=== PATIENT | male | born 1985 | race African-American/Black ===

== ENCOUNTER 2016-07-19 14:41 | Inpatient (IN) | payer OTHER ==
[~2016-07-19] VITALS: Ht 182.9 cm; Wt 97.5 kg
[~2016-07-19 14:41] MED LIST changes: -DIATRIZOATE MEGLUM/DIATRIZOATE SOD 120 ML BTL (for RAD DIAG) RECTAL ONE; -DIVA500T PO; -FLUO20CA4 PO; -MIRTA15 PO; -OLAN10TA PO; -RANI150T PO; -fentaNYL CITRATE 250 MCG/5 ML AMP ONE
[2016-07-20] MEDS ORDERED: LACTATED RINGER'S 1000 ML IV SCH (06:45)
[2016-07-20] MEDS ORDERED: METOPROLOL TARTRATE 25 MG TAB PO PRN (06:45)
[2016-07-20] MEDS ORDERED: SODIUM CHLORID 0.9% 500 ML IV SCH (06:45)
[2016-07-20] MEDS ORDERED: ceFAZolin 2 GM PREMIX 50 ML IV SCH (06:45)
[2016-07-20] MEDS ORDERED: ALVIMOPAN 12 MG CAPSULE - On Call PO SCH (06:45)
[2016-07-20] MEDS ORDERED: METRONIDAZOLE 500 MG/100 ML ISONTONIC SOLN IV SCH (06:45)
[2016-07-20] MEDS ORDERED: INSULIN HUMAN REGULAR 1,000 UNITS/10 ML VIAL SQ PRN (06:45)
[2016-07-20] MEDS ORDERED: DIVA500T PO (06:50)
[2016-07-20] MEDS ORDERED: RANI150T PO (06:50)
[2016-07-20] MEDS ORDERED: MIRTA15 PO (06:50)
[2016-07-20] MEDS ORDERED: FLUO20CA4 PO (06:50)
[2016-07-20] MEDS ORDERED: OLAN10TA PO (06:50)
[2016-07-20 06:51] VITALS: BP 121/69; PULSE 62; RESP 16; TEMP 97.6; O2SAT 99
[2016-07-20] MEDS ORDERED: BUPIVACAINE/EPINEPHRINE 0.25% 50 ML VIAL ONE (07:04)
[2016-07-20] MEDS ORDERED: ACETAMINOPHEN 1000 MG/100 ML VIAL IV ONE (07:06)
[2016-07-20 07:46] LABS: AUTOMATED NEUTROPHIL # 2.1 TH/MM3 (1.8-7.7); BASOPHIL % 0.2 % (0.0-2.0); EOSINOPHIL # 0.1 TH/MM3 (0-0.4); EOSINOPHIL % 1.1 % (0.0-4.0); HEMATOCRIT 43.6 % (39.0-51.0); HEMO FLAGS DIFF FINAL; LYMPH % 41.3 % (9.0-44.0); LYMPHOCYTE # 1.9 TH/MM3 (1.0-4.8); MEAN CELL VOLUME 93.1 FL (80.0-100.0); MEAN CORPUSCULAR HEMOGLOBIN 31.5 PG (27.0-34.0); MEAN CORPUSCULAR HGB CONC 33.9 % (32.0-36.0); MONO % 11.8 % (0.0-8.0); NEUT % 45.6 % (16.0-70.0); PLATELET COUNT 159 TH/MM3 (150-450); RED BLOOD COUNT 4.68 MIL/MM3 (4.50-5.90); WHITE BLOOD COUNT 4.6 TH/MM3 (4.0-11.0)
[2016-07-20] MEDS ORDERED: FAMOTIDINE 20 MG/2 ML VIAL ONE (07:51)
[2016-07-20] MEDS ORDERED: MIDAZOLAM HCL 2 MG/2 ML VIAL ONE (07:51)
[2016-07-20 08:15] LABS: ANION GAP 7 MEQ/L (5-15); AST (GOT) 24 U/L (15-37); BICARBONATE 29.3 MEQ/L (21.0-32.0); BLOOD UREA NITROGEN 11 MG/DL (7-18); CHLORIDE 102 MEQ/L (98-107); GLOMERULAR FILTRATION RATE 97 ML/MIN (>89); POTASSIUM 3.9 MEQ/L (3.5-5.1); SODIUM (NA) 138 MEQ/L (136-145)
[2016-07-20 08:18] LABS: ALKALINE PHOSPHATASE 54 U/L (45-117); ALT (GPT) 20 U/L (12-78); TOTAL BILIRUBIN ADULT 0.8 MG/DL (0.2-1.0)
[2016-07-20] MEDS ORDERED: ceFAZolin INJ 1,000 MG VIAL IV ONE (11:20)
[2016-07-20] MEDS ORDERED: NEOSTIGMINE 3 MG/3 ML SYR IV ONE (12:00)
[2016-07-20] MEDS ORDERED: PROPOFOL 200 MG/20 ML AMP IV ONE (12:00)
[2016-07-20] MEDS ORDERED: LACTATED RINGER'S 1000 ML INJ 5,000 ML IV ONE (12:00)
[2016-07-20] MEDS ORDERED: ONDANSETRON HCL 4 MG/2 ML VIAL IV PUSH ONE (12:00)
[2016-07-20 15:43] LABS: HEMATOCRIT 39.7 % (39.0-51.0); REVIEW FLAG FINAL
[2016-07-20] MEDS: LACTATED RINGER'S 1000 ML INJ 1,000 ML IV SCH ×2 (16:38→20:38)
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
[2016-07-20] MEDS ORDERED: MORPHINE SULFATE 4 MG/ML INJ IV PRN (16:45)
[2016-07-20] MEDS ORDERED: SODIUM CHLORIDE 0.9% FLUSH 5 ML FLUSH IVF PRN (16:45)
[2016-07-20] MEDS ORDERED: ONDANSETRON HCL 4 MG/2 ML VIAL IV PRN (16:45)
[2016-07-20] MEDS ORDERED: oxyCODONE/ACETAMINOPHEN 5 MG/325 MG TAB PO PRN (16:45)
[2016-07-20] MEDS ORDERED: DO NOT ADM ANY ANTICOAGULANT DRUGS XX PRN (16:45)
[2016-07-20] MEDS ORDERED: Post-op Orders (for Pharmacy) MISC XX ONE (16:45)
[2016-07-20] MEDS ORDERED: NALOXONE HCL 0.4 MG/ML AMP IV PRN ×2 (16:45)
[2016-07-20] MEDS ORDERED: HYDROmorphone HCL PCA 6 MG/30 ML IV SCH (16:45)
[2016-07-20] MEDS ORDERED: fentaNYL CITRATE 250 MCG/5 ML AMP ONE (16:59)
[2016-07-20] MEDS ORDERED: *MEPERIDINE 25 MG INJ VIAL PERIprocedural Use ONLY ONE (16:59)
[2016-07-20] MEDS ORDERED: *ONDANSETRON 4 MG VIAL PERIprocedural Use ONLY ONE (17:34)
[2016-07-20] MEDS: ACETAMINOPHEN 1000 MG/100 ML VIAL IV SCH ×2 (17:45→23:50)
[2016-07-20] MEDS: PANTOPRAZOLE SODIUM 40 MG VIAL IV SCH (17:46)
[2016-07-20] MEDS: metroNIDAZOLE 500 MG INJ 100 ML IV SCH (20:00)
[2016-07-20] MEDS: diphenhydrAMINE HCL 50 MG/ML VIAL IV PRN (20:00)
[2016-07-20] MEDS ORDERED: SUGAMMADEX SODIUM 200 MG/2 ML VIAL IV PUSH ONE ×2 (20:33)
[2016-07-20] MEDS: SODIUM CHLORIDE 0.9% FLUSH 5 ML FLUSH IVF SCH (20:55)
[2016-07-20] MEDS: LORazepam 2 MG/ML VIAL IVP PRN (20:56)
[2016-07-20] MEDS: PCA - TOTAL MG DILAUDID DELIVERED PER SHIFT OTHER SCH (22:00)
[2016-07-20] MEDS ORDERED: LACTATED RINGER'S 1000 ML INJ 1,000 ML IV SCH (23:15)
[2016-07-21] VITALS (20 sets, daily range): BP systolic 121–133; BP diastolic 62–88; PULSE 94–141; RESP 18–22; TEMP 98.3–100.3; O2SAT 92–98
[2016-07-21] MEDS ORDERED: LACTATED RINGER'S 1000 ML INJ 1,000 ML IV SCH (04:15)
[2016-07-21] MEDS: metroNIDAZOLE 500 MG INJ 100 ML IV SCH ×2 (05:22→11:22)
[2016-07-21] MEDS: PCA - TOTAL MG DILAUDID DELIVERED PER SHIFT OTHER SCH (05:39)
[2016-07-21] MEDS: ACETAMINOPHEN 1000 MG/100 ML VIAL IV SCH ×2 (06:00→11:23)
[2016-07-21] MEDS: diphenhydrAMINE HCL 50 MG/ML VIAL IV PRN ×3 (06:30→21:34)
[2016-07-21] MEDS: ALVIMOPAN 12 MG CAPSULE - Post-op dosing PO SCH ×2 (09:10→20:17)
[2016-07-21] MEDS: SODIUM CHLORIDE 0.9% FLUSH 5 ML FLUSH IVF SCH ×3 (09:11→21:00)
[2016-07-21] MEDS ORDERED: NALOXONE HCL 0.4 MG/ML AMP IV PRN ×2 (09:15)
[2016-07-21] MEDS ORDERED: Post-op Orders (for Pharmacy) MISC XX ONE (09:15)
[2016-07-21] MEDS ORDERED: SODIUM CHLORIDE 0.9% FLUSH 5 ML FLUSH IVF PRN (09:15)
--- NOTE | 2016-07-21 09:21 | HHI.PR ---
Subjective Subjective Notes c/o LUE weakness. Can't neon tube bender towards face. Itchy. Objective Vitals/I&O Vital Signs Date Time Temp Pulse Resp B/P Pulse Ox O2 Delivery O2 Flow Rate FiO2 07/21/16 05:39 18 07/21/16 04:00 110 125/77 97 07/21/16 02:00 98.3 07/20/16 20:15 Nasal Cannula 2 Labs Laboratory Tests Test 07/20/16 15:08 Hemoglobin 14.0 Hematocrit 39.7 Cardiovascular: Other (sinus tachycardia.) Lungs: Clear Abdomen: Other (ileostomy edematous, pink/beefy red, no output. 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 LUE weakness, neuropraxia, will get PT to see, begin exercises. Will get neuro eval if improvement not significant. Clears. Labs drawn, results pending, will follow up. Follow sinus tachycardia, may need additional fluid, will give 500 bolus today, though UOP good. Kevin Julien MD Jul 21, 2016 09:21
[2016-07-21] MEDS ORDERED: SODIUM CHLORID 0.9% 500 ML INJ 500 ML IV ONE (09:30)
[2016-07-21] MEDS: MORPHINE SULFATE 30 MG/30 ML PCA IV SCH ×2 (11:29→20:14)
[2016-07-21 11:34] LABS: AUTOMATED NEUTROPHIL # 5.7 TH/MM3 (1.8-7.7); BASOPHIL % 0.1 % (0.0-2.0); HEMATOCRIT 37.7 % (39.0-51.0); HEMO FLAGS DIFF FINAL; LYMPH % 14.5 % (9.0-44.0); LYMPHOCYTE # 1.1 TH/MM3 (1.0-4.8); MEAN CELL VOLUME 93.2 FL (80.0-100.0); MEAN CORPUSCULAR HEMOGLOBIN 32.1 PG (27.0-34.0); MEAN CORPUSCULAR HGB CONC 34.4 % (32.0-36.0); MONO % 10.4 % (0.0-8.0); PLATELET COUNT 172 TH/MM3 (150-450); RED BLOOD COUNT 4.05 MIL/MM3 (4.50-5.90); WHITE BLOOD COUNT 7.5 TH/MM3 (4.0-11.0)
[2016-07-21 12:26] LABS: BICARBONATE 29.6 MEQ/L (21.0-32.0); POTASSIUM 3.7 MEQ/L (3.5-5.1)
[2016-07-21] MEDS: PCA - TOTAL MG MORPHINE DELIVERED PER SHIFT SCH ×2 (14:00→22:00)
[2016-07-21] MEDS: ENOXAPARIN SODIUM 40 MG/0.4 ML SYRINGE SQ SCH (16:16)
[2016-07-21] MEDS: LACTATED RINGER'S 1000 ML INJ 1,000 ML IV SCH (17:47)
[2016-07-21] MEDS: PANTOPRAZOLE SODIUM 40 MG VIAL IV SCH (17:47)
[2016-07-22] VITALS (21 sets, daily range): BP systolic 112–120; BP diastolic 55–69; PULSE 108–137; RESP 18; TEMP 98–99.4; O2SAT 92–99
[2016-07-22] MEDS: LACTATED RINGER'S 1000 ML INJ 1,000 ML IV SCH ×2 (02:43→09:44)
[2016-07-22] MEDS: MORPHINE SULFATE 30 MG/30 ML PCA IV SCH ×2 (03:48→20:31)
[2016-07-22] MEDS: diphenhydrAMINE HCL 50 MG/ML VIAL IV PRN (03:48)
[2016-07-22] MEDS: LORazepam 2 MG/ML VIAL IVP PRN (03:58)
[2016-07-22] MEDS: PCA - TOTAL MG MORPHINE DELIVERED PER SHIFT SCH ×3 (05:56→22:00)
[2016-07-22] MEDS: SODIUM CHLORIDE 0.9% FLUSH 5 ML FLUSH IVF SCH ×4 (09:00→20:15)
[2016-07-22] MEDS: ALVIMOPAN 12 MG CAPSULE - Post-op dosing PO SCH ×2 (09:43→20:15)
--- NOTE | 2016-07-22 12:39 | HHI.PR ---
Subjective Subjective Notes feels ok. pain controlled, tolerating liquids, LUE moving more today Objective Vitals/I&O Vital Signs Date Time Temp Pulse Resp B/P Pulse Ox O2 Delivery O2 Flow Rate FiO2 07/22/16 11:00 98.0 129 18 120/62 92 07/22/16 07:47 Nasal Cannula 2.00 Cardiovascular: Regular Lungs: Clear Abdomen: Non-distended, Post-op tenderness, BS normal Narrative Exam ileostomy edematous RLQ, midline wound is clean good ROM LUE A/P Assessment and Plan s/p colostomy takedown stable remains tachycardic but labs ok and AAMIR with serosanguinous fluid FU labs in am LUE improving, likely palsy from positioning Alan Jack MD Jul 22, 2016 12:39
[2016-07-22] MEDS: ENOXAPARIN SODIUM 40 MG/0.4 ML SYRINGE SQ SCH (15:18)
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
[2016-07-22] MEDS: PANTOPRAZOLE SODIUM 40 MG VIAL IV SCH (17:57)
[2016-07-23] VITALS (21 sets, daily range): BP systolic 104–115; BP diastolic 53–67; PULSE 99–118; RESP 18–20; TEMP 98.6–100.8; O2SAT 93–99
[2016-07-23] MEDS: LACTATED RINGER'S 1000 ML INJ 1,000 ML IV SCH (02:43)
[2016-07-23] MEDS: PCA - TOTAL MG MORPHINE DELIVERED PER SHIFT SCH ×3 (05:23→22:00)
--- NOTE | 2016-07-23 06:50 | HHI.PR ---
Subjective Subjective Notes c/o pain. pain med effective. Tolerating liquids. Objective Vitals/I&O Vital Signs Date Time Temp Pulse Resp B/P Pulse Ox O2 Delivery O2 Flow Rate FiO2 07/23/16 05:23 18 07/23/16 04:00 98.6 99 115/67 97 07/22/16 20:01 Nasal Cannula 3.50 Cardiovascular: Regular Lungs: Clear Abdomen: Non-distended, Other (ileostomy functioning well. pink. Drain serosanguinous.), Post-op tenderness Extremities: No edema, Perfused A/P Assessment and Plan POD 3 lap converted to open colostomy takedown, diverting ileostomy. Advance diet to regular. getting OOB. Encouraged patient to use po pain meds. LUE moving well, neuropraxia drastically improved. Kevin Julien MD Jul 23, 2016 06:50
[2016-07-23 07:12] LABS: BASOPHIL % 0.1 % (0.0-2.0); EOSINOPHIL % 0.3 % (0.0-4.0); HEMATOCRIT 29.5 % (39.0-51.0); HEMO FLAGS DIFF FINAL; LYMPH % 15.2 % (9.0-44.0); MEAN CELL VOLUME 93.3 FL (80.0-100.0); MEAN CORPUSCULAR HEMOGLOBIN 32.5 PG (27.0-34.0); MEAN CORPUSCULAR HGB CONC 34.8 % (32.0-36.0); MONO % 9.2 % (0.0-8.0); NEUT % 75.2 % (16.0-70.0); PLATELET COUNT 149 TH/MM3 (150-450); RED BLOOD COUNT 3.16 MIL/MM3 (4.50-5.90); RED CELL DISTRIBUTION WIDTH 14.1 % (11.6-17.2); WHITE BLOOD COUNT 6.6 TH/MM3 (4.0-11.0)
[2016-07-23 07:52] LABS: POTASSIUM 3.3 MEQ/L (3.5-5.1)
[2016-07-23] MEDS: SODIUM CHLORIDE 0.9% FLUSH 5 ML FLUSH IVF SCH ×4 (09:00→20:55)
[2016-07-23] MEDS: ALVIMOPAN 12 MG CAPSULE - Post-op dosing PO SCH ×2 (10:40→20:55)
[2016-07-23] MEDS: oxyCODONE/ACETAMINOPHEN 10 MG/325 MG TAB PO PRN (12:03)
--- NOTE | 2016-07-23 17:09 | EKG ---
Date Performed: 07/22/2016 Time Performed: 14:27:00 PTAGE: 30 years EKG: Sinus tachycardia Compared to prior tracing no significant change Normal ECG except for rat e PREVIOUS TRACING : 03/13/2009 00.48 DOCTOR: Amna Scruggs Interpretating Date/Time 07/23/2016 17:07:33
[2016-07-23] MEDS: PANTOPRAZOLE SODIUM 40 MG VIAL IV SCH (17:23)
[2016-07-23] MEDS: MORPHINE SULFATE 30 MG/30 ML PCA IV SCH (18:42)
[2016-07-23] MEDS: POTASSIUM CHLORIDE 20 MEQ CONTROLLED RELEASE TAB PO SCH (20:55)
[2016-07-24] VITALS (21 sets, daily range): BP systolic 104–138; BP diastolic 58–75; PULSE 95–121; RESP 18; TEMP 98.6–100.8; O2SAT 91–96
[2016-07-24] MEDS: PCA - TOTAL MG MORPHINE DELIVERED PER SHIFT SCH ×3 (05:33→22:00)
[2016-07-24 06:59] LABS: HEMATOCRIT 30.5 % (39.0-51.0); MEAN CELL VOLUME 92.3 FL (80.0-100.0); MEAN CORPUSCULAR HEMOGLOBIN 32.2 PG (27.0-34.0); MEAN CORPUSCULAR HGB CONC 34.8 % (32.0-36.0); PLATELET COUNT 199 TH/MM3 (150-450); RED BLOOD COUNT 3.31 MIL/MM3 (4.50-5.90); RED CELL DISTRIBUTION WIDTH 13.6 % (11.6-17.2); REVIEW FLAG FINAL
[2016-07-24 07:21] LABS: BICARBONATE 29.1 MEQ/L (21.0-32.0); POTASSIUM 3.3 MEQ/L (3.5-5.1)
[2016-07-24] MEDS: ALVIMOPAN 12 MG CAPSULE - Post-op dosing PO SCH ×2 (08:40→21:46)
[2016-07-24] MEDS: POTASSIUM CHLORIDE 20 MEQ CONTROLLED RELEASE TAB PO SCH ×2 (08:41→21:47)
--- NOTE | 2016-07-24 08:55 | HHI.PR ---
Subjective Subjective Notes getting up to chair. Pain better. Objective Vitals/I&O Vital Signs Date Time Temp Pulse Resp B/P Pulse Ox O2 Delivery O2 Flow Rate FiO2 07/24/16 07:00 100.2 101 18 115/69 94 07/23/16 09:35 Nasal Cannula 3.00 Labs Laboratory Tests Test 07/24/16 06:15 White Blood Count 7.0 Red Blood Count 3.31 Hemoglobin 10.6 Hematocrit 30.5 Mean Corpuscular Volume 92.3 Mean Corpuscular Hemoglobin 32.2 Mean Corpuscular Hemoglobin 34.8 Concent Red Cell Distribution Width 13.6 Platelet Count 199 Mean Platelet Volume 7.3 Sodium Level 140 Potassium Level 3.3 Chloride Level 104 Carbon Dioxide Level 29.1 Anion Gap 7 Blood Urea Nitrogen 6 Creatinine 0.81 Estimat Glomerular Filtration 134 Rate Random Glucose 106 Calcium Level 8.2 Cardiovascular: Regular Lungs: Clear Abdomen: Non-distended, Other (ileostomy with edema, but functioning well. Midline scar approximated without drainage. Drain serous, pink tinged), Post-op tenderness A/P Assessment and Plan POD 4 lap converted to open colostomy takedown, diverting ileostomy. Tolerating diet. REDD kate. Supplement potassium. Transfer to med surg floor. Kevin Julien MD Jul 24, 2016 08:55
[2016-07-24] MEDS: SODIUM CHLORIDE 0.9% FLUSH 5 ML FLUSH IVF SCH ×4 (09:00→21:52)
[2016-07-24] MEDS ORDERED: RESP: ALBUTEROL 2.5 MG/3 ML NEB (SCH) INH (10:00)
[2016-07-24] MEDS: POTASSIUM CHLORIDE INJ 30 MEQ in LACTATED RINGER'S 1000 ML INJ 1,000 ML IV SCH (11:11)
[2016-07-24] MEDS: POTASSIUM CHLOR 20 MEQ PREMIX 100 ML IV SCH ×2 (11:11→14:35)
[2016-07-24] MEDS: MORPHINE SULFATE 30 MG/30 ML PCA IV SCH (20:03)
[2016-07-24] MEDS: PANTOPRAZOLE SODIUM 40 MG VIAL IV SCH (21:46)
[2016-07-25] VITALS (20 sets, daily range): BP systolic 106–130; BP diastolic 62–71; PULSE 88–114; RESP 16–20; TEMP 98.8–100.4; O2SAT 96–98
[2016-07-25] MEDS: POTASSIUM CHLORIDE INJ 30 MEQ in LACTATED RINGER'S 1000 ML INJ 1,000 ML IV SCH ×2 (00:13→12:27)
[2016-07-25] MEDS: PCA - TOTAL MG MORPHINE DELIVERED PER SHIFT SCH ×2 (05:58→14:00)
[2016-07-25 06:28] LABS: AUTOMATED NEUTROPHIL # 5.8 TH/MM3 (1.8-7.7); BASOPHIL % 0.4 % (0.0-2.0); EOSINOPHIL # 0.1 TH/MM3 (0-0.4); EOSINOPHIL % 0.8 % (0.0-4.0); HEMATOCRIT 31.3 % (39.0-51.0); HEMO FLAGS DIFF FINAL; LYMPH % 17.8 % (9.0-44.0); LYMPHOCYTE # 1.5 TH/MM3 (1.0-4.8); MEAN CELL VOLUME 92.4 FL (80.0-100.0); MEAN CORPUSCULAR HEMOGLOBIN 31.3 PG (27.0-34.0); MEAN CORPUSCULAR HGB CONC 33.9 % (32.0-36.0); MONO % 10.3 % (0.0-8.0); NEUT % 70.7 % (16.0-70.0); PLATELET COUNT 225 TH/MM3 (150-450); RED BLOOD COUNT 3.39 MIL/MM3 (4.50-5.90); RED CELL DISTRIBUTION WIDTH 13.9 % (11.6-17.2); WHITE BLOOD COUNT 8.3 TH/MM3 (4.0-11.0)
[2016-07-25 06:53] LABS: BICARBONATE 26.3 MEQ/L (21.0-32.0); POTASSIUM 3.8 MEQ/L (3.5-5.1)
[2016-07-25] MEDS: MORPHINE SULFATE 30 MG/30 ML PCA IV SCH (07:22)
--- NOTE | 2016-07-25 08:12 | HHI.PR ---
Subjective Subjective Notes Doing better. R arm swelling resolved. LUE working normally. Tolerating po well. No Nausea/vomiting. Objective Vitals/I&O Vital Signs Date Time Temp Pulse Resp B/P Pulse Ox O2 Delivery O2 Flow Rate FiO2 07/25/16 07:22 19 07/25/16 04:30 99.3 95 112/68 97 07/23/16 09:35 Nasal Cannula 3.00 Labs Laboratory Tests Test 07/25/16 06:01 White Blood Count 8.3 Red Blood Count 3.39 Hemoglobin 10.6 Hematocrit 31.3 Mean Corpuscular Volume 92.4 Mean Corpuscular Hemoglobin 31.3 Mean Corpuscular Hemoglobin 33.9 Concent Red Cell Distribution Width 13.9 Platelet Count 225 Mean Platelet Volume 7.0 Neutrophils (%) (Auto) 70.7 Lymphocytes (%) (Auto) 17.8 Monocytes (%) (Auto) 10.3 Eosinophils (%) (Auto) 0.8 Basophils (%) (Auto) 0.4 Neutrophils # (Auto) 5.8 Lymphocytes # (Auto) 1.5 Monocytes # (Auto) 0.8 Eosinophils # (Auto) 0.1 Basophils # (Auto) 0.0 CBC Comment DIFF FINAL Differential Comment Sodium Level 138 Potassium Level 3.8 Chloride Level 103 Carbon Dioxide Level 26.3 Anion Gap 9 Blood Urea Nitrogen 7 Creatinine 0.81 Estimat Glomerular Filtration 134 Rate Random Glucose 101 Calcium Level 8.3 Cardiovascular: Regular Abdomen: Non-distended, Other (incisions well approximated. no erythema, no edema. Ileostomy edematous, but functioning well. ), Post-op tenderness Extremities: No edema, Perfused A/P Assessment and Plan POD 5 lap converted to open colostomy takedown, diverting ileostomy. transition all meds to po. DC drain. follow ileostomy output closely, make sure patient does not become dehydrated. Electrolytes look good, K 3.8 this morning. D/W Dr Felix and patient. Kevin Julien MD Jul 25, 2016 08:12
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
[2016-07-25] MEDS: SODIUM CHLORIDE 0.9% FLUSH 5 ML FLUSH IVF SCH ×3 (09:00→20:26)
[2016-07-25] MEDS: POTASSIUM CHLORIDE 20 MEQ CONTROLLED RELEASE TAB PO SCH ×2 (09:34→20:26)
[2016-07-25] MEDS: oxyCODONE/ACETAMINOPHEN 10 MG/325 MG TAB PO PRN ×3 (10:00→19:04)
[2016-07-25] MEDS: PSYLLIUM FIBER SF/GF 6 GM POWD PKT PO SCH ×3 (13:57→21:00)
[2016-07-25] MEDS: D5-1/2 NS + KCL 20 MEQ INJ 1,000 ML IV SCH (13:58)
[2016-07-25] MEDS: CEPHALEXIN MONOHYDRATE 500 MG CAP PO SCH ×2 (14:00→20:26)
[2016-07-25] MEDS: LOPERAMIDE HCL SOLN 2 MG/10 ML UDC PO SCH ×2 (15:00→20:00)
[2016-07-25] MEDS: PANTOPRAZOLE SODIUM 40 MG VIAL IV SCH (17:59)
[2016-07-26] VITALS (29 sets, daily range): BP systolic 107–116; BP diastolic 66–73; PULSE 92–114; RESP 16–18; TEMP 98.5–102; O2SAT 95–98
[2016-07-26] MEDS: CEPHALEXIN MONOHYDRATE 500 MG CAP PO SCH (03:09)
[2016-07-26] MEDS: LOPERAMIDE HCL SOLN 2 MG/10 ML UDC PO SCH ×4 (03:09→20:43)
[2016-07-26] MEDS: oxyCODONE/ACETAMINOPHEN 10 MG/325 MG TAB PO PRN ×2 (08:54→15:26)
[2016-07-26] MEDS: POTASSIUM CHLORIDE 20 MEQ CONTROLLED RELEASE TAB PO SCH ×2 (08:54→20:43)
[2016-07-26] MEDS: SODIUM CHLORIDE 0.9% FLUSH 5 ML FLUSH IVF SCH ×2 (08:55→20:43)
[2016-07-26] MEDS: PSYLLIUM FIBER SF/GF 6 GM POWD PKT PO SCH ×4 (08:55→20:43)
--- NOTE | 2016-07-26 12:12 | HHI.PR ---
Subjective Subjective Notes postop pain. poor appetite but tolerating liquids, no N/V.+ Objective Vitals/I&O Vital Signs Date Time Temp Pulse Resp B/P Pulse Ox O2 Delivery O2 Flow Rate FiO2 07/26/16 09:54 18 07/26/16 09:09 102.0 112 114/73 95 07/23/16 09:35 Nasal Cannula 3.00 Cardiovascular: Regular Lungs: Clear Abdomen: Non-distended, Other (mild erythema adjacent to middle of colostomy takedown incision, no expressable purulent drainage, no fluctuant area. Remainder of incisions intact without erythema or drainage. Ostomy remains edematous, pink. Output is of thicker consistency. ), Post-op tenderness Extremities: No edema, Perfused, Other (full ROM and strength in all 4 extremities, no cellulitis. No edema. No tenderness in calves.) A/P Assessment and Plan POD 6 lap converted to open colostomy takedown, diverting ileostomy. Temp to 102. Etiology not clear. Dr Felix order empiric abx, CT abdomen and pelvis and CXR. I ordered CBC and BMP and will order blood cultures. I am OOT and have d/w Dr Jean patient and he will follow. Kevin Julien MD Jul 26, 2016 12:12
[2016-07-26] MEDS: POTASSIUM CHLORIDE INJ 30 MEQ in LACTATED RINGER'S 1000 ML INJ 1,000 ML IV SCH (12:55)
[2016-07-26] MEDS: cefTRIAXone INJ 1,000 MG in SODIUM CHLORIDE 0.9% INJ 100 ML IV SCH (12:57)
[2016-07-26] MEDS: D5-1/2 NS + KCL 20 MEQ INJ 1,000 ML IV SCH (13:39)
[2016-07-26] MEDS: metroNIDAZOLE 500 MG INJ 100 ML IV SCH ×2 (13:40→20:43)
[2016-07-26] MEDS: PCA - TOTAL MG MORPHINE DELIVERED PER SHIFT SCH (13:40)
[2016-07-26] MEDS ORDERED: DIATRIZOATE MEGLUM/DIATRIZOATE SOD 9 ML CUP PO ONE (14:00)
[2016-07-26] MEDS ORDERED: SODIUM CHLORID 0.9% 500 ML INJ 500 ML IV ONE (14:15)
[2016-07-26 14:33] LABS: AUTOMATED NEUTROPHIL # 7.6 TH/MM3 (1.8-7.7); BASOPHIL % 0.4 % (0.0-2.0); EOSINOPHIL # 0.1 TH/MM3 (0-0.4); EOSINOPHIL % 1.1 % (0.0-4.0); HEMATOCRIT 36.7 % (39.0-51.0); HEMO FLAGS DIFF FINAL; LYMPHOCYTE # 1.7 TH/MM3 (1.0-4.8); MEAN CELL VOLUME 92.4 FL (80.0-100.0); MEAN CORPUSCULAR HEMOGLOBIN 32.4 PG (27.0-34.0); MEAN CORPUSCULAR HGB CONC 35.1 % (32.0-36.0); NEUT % 72.5 % (16.0-70.0); PLATELET COUNT 316 TH/MM3 (150-450); RED BLOOD COUNT 3.97 MIL/MM3 (4.50-5.90); RED CELL DISTRIBUTION WIDTH 13.9 % (11.6-17.2); WHITE BLOOD COUNT 10.5 TH/MM3 (4.0-11.0)
[2016-07-26] MEDS: SOD PHOSPHATE/SOD BIPHOSPHATE (ADULT) ENEMA 133ML PR ONE ×2 (15:45→16:51)
[2016-07-26 16:29] LABS: BLOOD, URINE NEG (NEG); GLUCOSE,URINE NEG (NEG); KETONE, URINE NEG (NEG); NITRITE,URINE NEG (NEG); PH, URINE 5.5 (5.0-8.5); SQUAMOUS EPITHELIAL CELL URINE <1 /hpf (0-5); URINE COLOR YELLOW (YELLW/STRAW)
[2016-07-26 16:41] LABS: COMMENT (UR) CULT NOT INDICATED; CULTURE IF INDICATED CULT NOT INDICATED
[2016-07-26] MEDS ORDERED: ACETAMINOPHEN 325 MG TAB PO PRN (17:15)
[2016-07-26] MEDS ORDERED: IOHEXOL 350 MG/ML 10 ML VIAL (for RAD DIAG) IV ONE (18:05)
[2016-07-26] MEDS ORDERED: MORPHINE SULFATE 8 MG/ML INJ IV PUSH PRN (18:30)
[2016-07-26] MEDS: PANTOPRAZOLE SODIUM 40 MG VIAL IV SCH (18:41)
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
[2016-07-27] VITALS (14 sets, daily range): BP systolic 114–125; BP diastolic 67–79; PULSE 80–118; RESP 18–20; TEMP 98.8–101.7; O2SAT 95–99
[2016-07-27] MEDS: metroNIDAZOLE 500 MG INJ 100 ML IV SCH ×3 (04:33→22:44)
[2016-07-27] MEDS: LOPERAMIDE HCL SOLN 2 MG/10 ML UDC PO SCH ×4 (04:33→22:47)
[2016-07-27] MEDS: D5-1/2 NS + KCL 20 MEQ INJ 1,000 ML IV SCH ×3 (05:18→22:56)
[2016-07-27] MEDS: PCA - TOTAL MG MORPHINE DELIVERED PER SHIFT SCH ×3 (06:00→22:00)
[2016-07-27] MEDS: RESP: ALBUTEROL 2.5 MG/3 ML NEB (SCH) INH ×3 (08:23→19:33)
[2016-07-27] MEDS: PSYLLIUM FIBER SF/GF 6 GM POWD PKT PO SCH ×3 (08:38→22:44)
[2016-07-27] MEDS: oxyCODONE/ACETAMINOPHEN 10 MG/325 MG TAB PO PRN (08:38)
[2016-07-27] MEDS: POTASSIUM CHLORIDE 20 MEQ CONTROLLED RELEASE TAB PO SCH ×2 (08:39→22:44)
[2016-07-27] MEDS: SODIUM CHLORIDE 0.9% FLUSH 5 ML FLUSH IVF SCH ×2 (08:39→21:00)
[2016-07-27] MEDS ORDERED: LIDOCAINE 1%/EPINEPHrine 1:100,000 SOLN 30 ML VIAL ONE (10:39)
[2016-07-27] MEDS ORDERED: SODIUM BICARBONATE 8.4% INJ 50 ML ONE (10:43)
[2016-07-27] MEDS ORDERED: BUPIVACAINE/EPINEPHRINE 0.25% PF 30 ML VIAL ONE (10:44)
[2016-07-27] MEDS ORDERED: BUPIVACAINE HCL PF 0.5% 30 ML VIAL ONE (10:44)
[2016-07-27] MEDS ORDERED: PROPOFOL 200 MG/20 ML AMP IV ONE (12:00)
[2016-07-27] MEDS ORDERED: ONDANSETRON HCL 4 MG/2 ML VIAL IV PUSH ONE (12:00)
[2016-07-27] MEDS ORDERED: DO NOT ADM ANY ANTICOAGULANT DRUGS XX PRN (12:07)
[2016-07-27] MEDS ORDERED: *MEPERIDINE 25 MG INJ VIAL PERIprocedural Use ONLY ONE (12:16)
[2016-07-27] MEDS ORDERED: fentaNYL CITRATE 250 MCG/5 ML AMP ONE (12:19)
--- NOTE | 2016-07-27 12:50 | HHI.PR ---
cc: Corby Jean MD; Kevin Felix MD Immediate Post Op Note Procedure Date: Jul 27, 2016 Pre Op Diagnosis: (1) Subcutaneous abscess Post Op Diagnosis: (1) Subcutaneous abscess Surgeon: Corby Jean Station Chief(s): Kevin Felix Procedure: ID debridement of subcutaneous abscess at all colostomy site with placement of VAC dressing Anesthesia: General Drains: Other IVF Patient to: PACU Patient Condition: Good Implant/Devices: SEE IMPLANT LOG (if applicable) Date/Time of Procedure: SEE SURGICAL CARE RECORD Corby Jean MD Jul 27, 2016 12:49
[2016-07-27] MEDS: cefTRIAXone INJ 1,000 MG in SODIUM CHLORIDE 0.9% INJ 100 ML IV SCH (12:51)
[2016-07-27] MEDS: MORPHINE SULFATE 30 MG/30 ML PCA IV SCH ×2 (13:04→17:10)
[2016-07-27] MEDS: PANTOPRAZOLE SODIUM 40 MG VIAL IV SCH (17:13)
[2016-07-28] VITALS (9 sets, daily range): BP systolic 112–124; BP diastolic 71–81; PULSE 92–111; RESP 16–20; TEMP 97–99.7; O2SAT 92–98
[2016-07-28] MEDS: MORPHINE SULFATE 30 MG/30 ML PCA IV SCH ×3 (00:29→17:51)
[2016-07-28] MEDS: LOPERAMIDE HCL SOLN 2 MG/10 ML UDC PO SCH ×4 (02:00→22:09)
[2016-07-28] MEDS: metroNIDAZOLE 500 MG INJ 100 ML IV SCH ×3 (05:41→22:08)
[2016-07-28] MEDS: PCA - TOTAL MG MORPHINE DELIVERED PER SHIFT SCH ×3 (06:00→22:00)
[2016-07-28] MEDS: RESP: ALBUTEROL 2.5 MG/3 ML NEB (SCH) INH ×4 (08:31→22:04)
[2016-07-28] MEDS: SODIUM CHLORIDE 0.9% FLUSH 5 ML FLUSH IVF SCH ×2 (08:58→21:00)
[2016-07-28] MEDS: POTASSIUM CHLORIDE 20 MEQ CONTROLLED RELEASE TAB PO SCH ×2 (08:59→22:08)
[2016-07-28] MEDS: PSYLLIUM FIBER SF/GF 6 GM POWD PKT PO SCH ×4 (08:59→22:04)
[2016-07-28] MEDS: VANCOMYCIN INJ 1,000 MG in SODIUM CHLOR 0.9% 250 ML INJ 250 ML IV SCH (10:07)
[2016-07-28] MEDS: ENOXAPARIN SODIUM 40 MG/0.4 ML SYRINGE SQ SCH (10:07)
[2016-07-28] MEDS: D5-1/2 NS + KCL 20 MEQ INJ 1,000 ML IV SCH ×2 (10:08→22:04)
[2016-07-28] MEDS: cefTRIAXone INJ 1,000 MG in SODIUM CHLORIDE 0.9% INJ 100 ML IV SCH (12:49)
--- NOTE | 2016-07-28 16:23 | HHI.PR ---
Subjective Subjective Notes Tolerating regular diet; although appetite not as good this afternoon as at breakfast. Objective Vitals/I&O Vital Signs Date Time Temp Pulse Resp B/P Pulse Ox O2 Delivery O2 Flow Rate FiO2 07/28/16 14:00 16 07/28/16 12:00 110 123/73 92 07/28/16 08:31 21 07/28/16 08:00 99.0 07/27/16 19:33 Nasal Cannula 2.00 Labs Date/Time Procedure Status Source Growth 07/26/16 20:28 Aerobic Blood Culture - Preliminary Resulted Blood Peripheral NO GROWTH IN 2 DAYS 07/26/16 20:28 Anaerobic Blood Culture - Preliminary Resulted Blood Peripheral NO GROWTH IN 2 DAYS Lungs: Clear Abdomen: Non-distended, Post-op tenderness Narrative Exam Colostomy site viable with stool in bag Small area mid incision with bloody drainage (small amt) VAC dressing intact A/P Assessment and Plan POD #1/3 debridement/drainage colostomy site abscess, / colostomy takedown with protective ileostomy Tolerating diet Plan: Continue VAC dressing through weekend Continue STENOTYPIST today Kayden Holliday MD Jul 28, 2016 16:23
[2016-07-28] MEDS: PANTOPRAZOLE SODIUM 40 MG VIAL IV SCH (16:47)
[2016-07-29] VITALS (8 sets, daily range): BP systolic 110–130; BP diastolic 58–70; PULSE 83–100; RESP 14–18; TEMP 96.7–99.2; O2SAT 95–100
[2016-07-29] MEDS: VANCOMYCIN INJ 1,000 MG in SODIUM CHLOR 0.9% 250 ML INJ 250 ML IV SCH ×2 (00:26→07:34)
[2016-07-29] MEDS: LOPERAMIDE HCL SOLN 2 MG/10 ML UDC PO SCH ×4 (02:00→22:00)
[2016-07-29] MEDS: metroNIDAZOLE 500 MG INJ 100 ML IV SCH ×3 (05:31→22:00)
[2016-07-29] MEDS: PCA - TOTAL MG MORPHINE DELIVERED PER SHIFT SCH ×3 (05:40→22:00)
[2016-07-29] MEDS: D5-1/2 NS + KCL 20 MEQ INJ 1,000 ML IV SCH ×2 (05:40→17:00)
[2016-07-29] MEDS: MORPHINE SULFATE 30 MG/30 ML PCA IV SCH (07:32)
[2016-07-29] MEDS: POTASSIUM CHLORIDE 20 MEQ CONTROLLED RELEASE TAB PO SCH ×2 (07:33→22:00)
[2016-07-29] MEDS: PSYLLIUM FIBER SF/GF 6 GM POWD PKT PO SCH ×4 (07:34→21:39)
[2016-07-29] MEDS: RESP: ALBUTEROL 2.5 MG/3 ML NEB (SCH) INH ×3 (07:57→16:11)
[2016-07-29] MEDS: SODIUM CHLORIDE 0.9% FLUSH 5 ML FLUSH IVF SCH ×2 (08:10→21:00)
[2016-07-29] MEDS: cefTRIAXone INJ 1,000 MG in SODIUM CHLORIDE 0.9% INJ 100 ML IV SCH (10:23)
[2016-07-29] MEDS: ENOXAPARIN SODIUM 40 MG/0.4 ML SYRINGE SQ SCH (10:24)
[2016-07-29] MEDS: PANTOPRAZOLE SODIUM 40 MG VIAL IV SCH (17:11)
--- NOTE | 2016-07-29 21:46 | HHI.PR ---
Subjective Subjective Notes DAILY PROGRESS NOTE FOR SURGICAL ATTENDING, DR. JANIS JEAN Feels better still having temperatures Objective Vitals/I&O Vital Signs Date Time Temp Pulse Resp B/P Pulse Ox O2 Delivery O2 Flow Rate FiO2 07/29/16 20:00 99.2 99 18 113/64 97 07/29/16 07:57 21 07/28/16 22:05 Nasal Cannula 07/27/16 19:33 2.00 Labs Date/Time Procedure Status Source Growth 07/26/16 20:28 Aerobic Blood Culture - Preliminary Resulted Blood Peripheral NO GROWTH IN 3 DAYS 07/26/16 20:28 Anaerobic Blood Culture - Preliminary Resulted Blood Peripheral NO GROWTH IN 3 DAYS Cardiovascular: Regular Abdomen: Post-op tenderness (VAC in place) A/P Problem List: (1) Subcutaneous abscess Assessment and Plan Status post colostomy takedown with abscess to the old colostomy site VAC in place Plan to change the VAC and reevaluate wound and operating room tomorrow Problem Qualifiers (1) Subcutaneous abscess: Janis Jean MD Jul 29, 2016 21:46
[2016-07-30] VITALS (8 sets, daily range): BP systolic 103–111; BP diastolic 57–64; PULSE 67–106; RESP 18–20; TEMP 97.3–99; O2SAT 95–99
[2016-07-30] MEDS: VANCOMYCIN INJ 1,000 MG in SODIUM CHLOR 0.9% 250 ML INJ 250 ML IV SCH ×3 (01:13→22:32)
[2016-07-30] MEDS: LOPERAMIDE HCL SOLN 2 MG/10 ML UDC PO SCH ×4 (01:13→22:32)
[2016-07-30] MEDS: D5-1/2 NS + KCL 20 MEQ INJ 1,000 ML IV SCH ×2 (03:42→12:42)
[2016-07-30] MEDS: metroNIDAZOLE 500 MG INJ 100 ML IV SCH ×3 (05:00→22:31)
[2016-07-30] MEDS: PCA - TOTAL MG MORPHINE DELIVERED PER SHIFT SCH ×3 (05:03→22:00)
[2016-07-30] MEDS: RESP: ALBUTEROL 2.5 MG/3 ML NEB (SCH) INH ×4 (09:08→19:49)
[2016-07-30] MEDS: ENOXAPARIN SODIUM 40 MG/0.4 ML SYRINGE SQ SCH (11:00)
[2016-07-30] MEDS: PSYLLIUM FIBER SF/GF 6 GM POWD PKT PO SCH ×4 (11:41→22:39)
[2016-07-30] MEDS: POTASSIUM CHLORIDE 20 MEQ CONTROLLED RELEASE TAB PO SCH ×2 (11:41→22:31)
[2016-07-30] MEDS ORDERED: PROPOFOL 200 MG/20 ML AMP IV ONE (12:00)
[2016-07-30] MEDS ORDERED: LACTATED RINGER'S 1000 ML INJ 1,000 ML IV ONE (12:00)
[2016-07-30] MEDS: cefTRIAXone INJ 1,000 MG in SODIUM CHLORIDE 0.9% INJ 100 ML IV SCH (12:41)
[2016-07-30] MEDS: SODIUM CHLORIDE 0.9% FLUSH 5 ML FLUSH IVF SCH ×2 (12:42→22:39)
[2016-07-30] MEDS ORDERED: FAMOTIDINE 20 MG/2 ML VIAL ONE (16:46)
[2016-07-30] MEDS ORDERED: MIDAZOLAM HCL 2 MG/2 ML VIAL ONE (16:46)
[2016-07-30] MEDS ORDERED: fentaNYL CITRATE 250 MCG/5 ML AMP ONE (17:50)
[2016-07-30] MEDS: PANTOPRAZOLE SODIUM 40 MG VIAL IV SCH (18:10)
[2016-07-31] VITALS (7 sets, daily range): BP systolic 106–123; BP diastolic 57–71; PULSE 65–97; RESP 16–20; TEMP 96.2–98.4; O2SAT 97–99
[2016-07-31] MEDS: LOPERAMIDE HCL SOLN 2 MG/10 ML UDC PO SCH ×4 (01:02→19:49)
[2016-07-31] MEDS: D5-1/2 NS + KCL 20 MEQ INJ 1,000 ML IV SCH ×2 (01:02→13:14)
[2016-07-31] MEDS: MORPHINE SULFATE 30 MG/30 ML PCA IV SCH ×2 (03:22→20:02)
[2016-07-31] MEDS: metroNIDAZOLE 500 MG INJ 100 ML IV SCH (05:46)
[2016-07-31] MEDS: PCA - TOTAL MG MORPHINE DELIVERED PER SHIFT SCH ×3 (06:00→22:00)
--- NOTE | 2016-07-31 07:57 | HHI.PR ---
Subjective Subjective Notes No more fevers, appetite returning. Objective Vitals/I&O Vital Signs Date Time Temp Pulse Resp B/P Pulse Ox O2 Delivery O2 Flow Rate FiO2 07/31/16 00:00 97.4 97 18 106/67 98 07/30/16 18:15 Room Air 07/30/16 17:45 2 07/30/16 09:10 21 Labs Date/Time Procedure Status Source Growth 07/26/16 20:28 Aerobic Blood Culture - Preliminary Resulted Blood Peripheral NO GROWTH IN 4 DAYS 07/26/16 20:28 Anaerobic Blood Culture - Preliminary Resulted Blood Peripheral NO GROWTH IN 4 DAYS Abdomen: Non-distended, Other (VAC not working, moved plug to functional outlet , VAC now working. Midline incision intact. No erythema. Ileostomy with thickened output.), Post-op tenderness Extremities: No edema, Perfused A/P Problem List: (1) Subcutaneous abscess Assessment and Plan Postop lap converted to open colostomy takedown, diverting ileostomy. Postop open drainage and VAC colostomy takedown site. Improved. Fevers gone. Plan bedside VAC change tomorrow. Transition from IV to po. Problem Qualifiers (1) Subcutaneous abscess: Kevin Julien MD Jul 31, 2016 07:57
[2016-07-31] MEDS: POTASSIUM CHLORIDE 20 MEQ CONTROLLED RELEASE TAB PO SCH ×2 (08:23→19:49)
[2016-07-31] MEDS: SODIUM CHLORIDE 0.9% FLUSH 5 ML FLUSH IVF SCH ×2 (08:23→19:50)
[2016-07-31] MEDS: PSYLLIUM FIBER SF/GF 6 GM POWD PKT PO SCH ×4 (08:23→19:49)
[2016-07-31] MEDS: CIPROFLOXACIN 500 MG TAB PO SCH ×2 (09:30→19:49)
[2016-07-31] MEDS: ENOXAPARIN SODIUM 40 MG/0.4 ML SYRINGE SQ SCH (09:31)
[2016-07-31] MEDS: metroNIDAZOLE 500 MG TAB PO SCH ×2 (13:14→21:57)
[2016-07-31] MEDS: PANTOPRAZOLE SODIUM 40 MG VIAL IV SCH (17:49)
[2016-08-01] MEDS: D5-1/2 NS + KCL 20 MEQ INJ 1,000 ML IV SCH ×2 (01:34→10:22)
[2016-08-01] MEDS: LOPERAMIDE HCL SOLN 2 MG/10 ML UDC PO SCH ×4 (01:53→20:04)
[2016-08-01 04:00] VITALS: BP 116/60; PULSE 67; RESP 18; TEMP 97.9; O2SAT 98
[2016-08-01] MEDS: metroNIDAZOLE 500 MG TAB PO SCH ×3 (05:25→20:44)
[2016-08-01] MEDS: PCA - TOTAL MG MORPHINE DELIVERED PER SHIFT SCH ×3 (06:00→22:00)
[2016-08-01] MEDS: PSYLLIUM FIBER SF/GF 6 GM POWD PKT PO SCH ×4 (07:28→20:04)
[2016-08-01] MEDS: CIPROFLOXACIN 500 MG TAB PO SCH ×2 (07:28→20:04)
[2016-08-01] MEDS: SODIUM CHLORIDE 0.9% FLUSH 5 ML FLUSH IVF SCH ×2 (07:29→20:05)
[2016-08-01] MEDS: POTASSIUM CHLORIDE 20 MEQ CONTROLLED RELEASE TAB PO SCH ×2 (07:29→20:04)
[2016-08-01] MEDS: oxyCODONE/ACETAMINOPHEN 10 MG/325 MG TAB PO PRN (07:29)
[2016-08-01 08:00] VITALS: BP 118/72; PULSE 74; RESP 17; TEMP 97.7; O2SAT 99
--- NOTE | 2016-08-01 08:07 | HHI.PR ---
Subjective Subjective Notes No new changes. Tolerating po, ileostomy functioning well. Objective Vitals/I&O Vital Signs Date Time Temp Pulse Resp B/P Pulse Ox O2 Delivery O2 Flow Rate FiO2 08/01/16 06:00 18 08/01/16 04:00 97.9 67 116/60 98 07/30/16 18:15 Room Air 07/30/16 17:45 2 07/30/16 09:10 21 Abdomen: Non-distended, Non-tender, Other (Vac change at bedside, tolerated well. wound with moderate granulation. 2/3 of jing removed, steristrips placed.) Extremities: No edema, Perfused, Other (ankle cuffs in place.) A/P Problem List: (1) Subcutaneous abscess Assessment and Plan Postop lap converted to open colostomy takedown, diverting ileostomy. Postop open drainage and VAC colostomy takedown site. Improved. Tolerated VAC change at bedside. Possible transfer to [facility] Saturday.. Problem Qualifiers (1) Subcutaneous abscess: Kevin Julien MD Aug 01, 2016 08:07
[2016-08-01] MEDS: ENOXAPARIN SODIUM 40 MG/0.4 ML SYRINGE SQ SCH (10:22)
[2016-08-01 12:00] VITALS: BP 109/67; PULSE 66; RESP 17; TEMP 97; O2SAT 98
[2016-08-01] MEDS: PANTOPRAZOLE SODIUM 40 MG VIAL IV SCH (17:10)
[2016-08-01 20:00] VITALS: BP 125/73; PULSE 76; RESP 16; TEMP 97.3; O2SAT 97
[2016-08-01] MEDS: MORPHINE SULFATE 30 MG/30 ML PCA IV SCH (20:47)
[2016-08-02] VITALS: BP 113/76; PULSE 90; RESP 16; TEMP 98.1; O2SAT 96
[2016-08-02] MEDS: D5-1/2 NS + KCL 20 MEQ INJ 1,000 ML IV SCH ×3 (01:11→21:03)
[2016-08-02] MEDS: LOPERAMIDE HCL SOLN 2 MG/10 ML UDC PO SCH ×4 (02:02→20:56)
[2016-08-02] MEDS: metroNIDAZOLE 500 MG TAB PO SCH ×3 (05:14→20:56)
[2016-08-02] MEDS: PCA - TOTAL MG MORPHINE DELIVERED PER SHIFT SCH ×3 (06:00→20:56)
[2016-08-02 08:00] VITALS: BP 115/73; PULSE 74; RESP 17; TEMP 97.8; O2SAT 97
[2016-08-02] MEDS: ENOXAPARIN SODIUM 40 MG/0.4 ML SYRINGE SQ SCH (08:54)
[2016-08-02] MEDS: POTASSIUM CHLORIDE 20 MEQ CONTROLLED RELEASE TAB PO SCH ×2 (08:54→20:56)
[2016-08-02] MEDS: PSYLLIUM FIBER SF/GF 6 GM POWD PKT PO SCH ×4 (08:54→20:55)
[2016-08-02] MEDS: CIPROFLOXACIN 500 MG TAB PO SCH ×2 (08:54→20:56)
[2016-08-02] MEDS: SODIUM CHLORIDE 0.9% FLUSH 5 ML FLUSH IVF SCH ×2 (08:55→20:56)
--- NOTE | 2016-08-02 09:31 | MP ---
cc: JANIS JEAN M.D. AKA: Aramis Trujillo DATE OF SURGERY: 07/27/2016 PREOPERATIVE DIAGNOSIS Abscess to the old colostomy site. POSTOPERATIVE DIAGNOSIS Abscess to the old colostomy site. PROCEDURE Irrigation and debridement of inflammatory response subcutaneous abscess left colostomy site. ANESTHESIA General. SURGEON Dr. Jaen. HAND SHOE CUTTER Dr. Kevin Felix. INDICATION This is a 30-year-old -[place] gentleman who had a colostomy takedown done earlier in the week, he has developed fevers up to 102 and pain at the colostomy site. CT scan showed a fluid collection beneath the rectus, plans were made for above. PROCEDURE The patient taken to the operating room and placed in supine position after anesthesia. Dr. Felix had previously taken out the jing. The wound is opened further, extend the incision about 2 cm out laterally, necrotic subcutaneous tissue is debrided. We open up the lateral fascia, no aashish pus is seen, there is a fair amount of inflammatory response. We then irrigate copiously. We then placed a AAMIR down in the deep tissues and a VAC dressing is applied. The patient tolerated the procedure well and had no immediate postop complications. MD LISA Hooper/ISABELLA /12:45 PM /9:28 AM
[2016-08-02 12:00] VITALS: BP 108/63; PULSE 73; RESP 17; TEMP 98.1; O2SAT 98
--- NOTE | 2016-08-02 12:23 | HHI.PR ---
Subjective Subjective Notes sitting up, eating lunch. looks comfortable. Objective Vitals/I&O Vital Signs Date Time Temp Pulse Resp B/P Pulse Ox O2 Delivery O2 Flow Rate FiO2 08/02/16 12:00 98.1 73 17 108/63 98 07/30/16 18:15 Room Air 07/30/16 17:45 2 07/30/16 09:10 21 Abdomen: Non-distended, Non-tender, Other (ileostomy working well. VAC intact, no leak.) A/P Problem List: (1) Subcutaneous abscess Assessment and Plan Postop lap converted to open colostomy takedown, diverting ileostomy. Postop open drainage and VAC colostomy takedown site. Improved. VAC change tomorrow, possible DC to [facility]. DC remainder of jing Problem Qualifiers (1) Subcutaneous abscess: Kevin Julien MD Aug 02, 2016 12:23
[2016-08-02 16:00] VITALS: BP 114/65; PULSE 52; RESP 17; TEMP 97.2; O2SAT 99
[2016-08-02] MEDS: PANTOPRAZOLE SODIUM 40 MG VIAL IV SCH (16:33)
[2016-08-02 20:00] VITALS: BP 114/60; PULSE 96; RESP 21; TEMP 99.2; O2SAT 96
[2016-08-02 20:50] VITALS: RESP 18
[2016-08-03 00:14] VITALS: BP 115/69; PULSE 71; RESP 21; TEMP 98.4; O2SAT 96
[2016-08-03] MEDS: LOPERAMIDE HCL SOLN 2 MG/10 ML UDC PO SCH ×3 (02:26→12:22)
[2016-08-03] MEDS: MORPHINE SULFATE 30 MG/30 ML PCA IV SCH (02:28)
[2016-08-03 04:00] VITALS: BP 119/65; PULSE 73; RESP 21; TEMP 97.7; O2SAT 98
[2016-08-03] MEDS: metroNIDAZOLE 500 MG TAB PO SCH ×2 (05:48→12:22)
[2016-08-03] MEDS: PCA - TOTAL MG MORPHINE DELIVERED PER SHIFT SCH (06:00)
[2016-08-03 06:07] VITALS: RESP 18
--- NOTE | 2016-08-03 07:07 | MP ---
cc: CHRIS ALEXANDER M.D. AKA: Aramis Trujillo DATE OF SURGERY 07/30/2016 PREOPERATIVE DIAGNOSIS Infected colostomy site left lower quadrant. POSTOPERATIVE DIAGNOSIS Infected colostomy site left lower quadrant. PROCEDURE PERFORMED I&D left lower quadrant abdominal wound was VAC change. SURGEON Chris Alexander MD ANESTHESIA General LMA COMPLICATIONS None INDICATIONS FOR THE PROCEDURE Mr. Trujillo is a pleasant 30-year old patient of Dr. Kevin Jluien who underwent a colostomy takedown. Postoperatively, the patient had an infection of his colostomy site requiring irrigation, debridement and VAC placement by Dr. Corby Jean three days ago. The patient returns to the OR today for irrigation, debridement of wound and VAC change. The risks and benefits were discussed with the patient who was agreeable. DETAILS The patient identified, brought to the operating room and placed supine on the operating table. After adequate general anesthesia was achieved with LMA, the anterior abdomen was prepped and draped in a standard surgical fashion. Prior to prepping and draping, we removed the VAC. We removed the VAC, there was a AAMIR drain that was in the wound that became partially dislodged. I went ahead and removed the drain and this just had some bloody fluid with no pus. The wound was then prepped with Betadine. The abdomen was then draped in a standard surgical fashion. One liter warm saline solution was used to irrigate out the abdominal wound which appeared very clean and healthy with no evidence of pus. No evidence of stool. Overall, it was quite healthy and actively bleeding with good granulation tissue. The new VAC sponge was then placed in the wound and the VAC applied. The patient tolerated the procedure well. He was taken to recovery in stable condition. MD JANEL Dawn/CARLOS /5:30 PM /6:56 AM
[2016-08-03 08:00] VITALS: BP 106/71; PULSE 85; RESP 17; TEMP 97.5; O2SAT 97
[2016-08-03] MEDS: PSYLLIUM FIBER SF/GF 6 GM POWD PKT PO SCH ×2 (08:32→11:07)
[2016-08-03] MEDS: CIPROFLOXACIN 500 MG TAB PO SCH (08:32)
[2016-08-03] MEDS: POTASSIUM CHLORIDE 20 MEQ CONTROLLED RELEASE TAB PO SCH (08:32)
[2016-08-03] MEDS: SODIUM CHLORIDE 0.9% FLUSH 5 ML FLUSH IVF SCH (08:32)
[2016-08-03] MEDS: oxyCODONE/ACETAMINOPHEN 10 MG/325 MG TAB PO PRN ×2 (08:32→12:22)
[2016-08-03] MEDS: ENOXAPARIN SODIUM 40 MG/0.4 ML SYRINGE SQ SCH (08:32)
[2016-08-03] MEDS: D5-1/2 NS + KCL 20 MEQ INJ 1,000 ML IV SCH (08:33)
[2016-08-03 12:00] VITALS: BP 113/58; PULSE 67; RESP 17; TEMP 97.5; O2SAT 98
[2016-08-03 16:00] VITALS: BP 119/62; PULSE 71; RESP 17; TEMP 97.5; O2SAT 98
--- NOTE | 2016-08-07 11:42 | PQ ---
Physician Query Response Document PATIENT: JOCELYN SUE : 1985 ADMIT DATE: 07/20/2016 6:02 AM DISCH DATE: 08/03/2016 4:46 PM RESPONDING PROVIDER #: JBianchi QUERY TEXT: Debridement Type Based on your medical judgment, can you further clarify the method of wound debridement utilized in t his case, such as: --EXCISIONAL debridement --NON-EXCISIONAL debridement --Other debridement --Other Specify The patient's Clinical Indicators include: Irrigation and debridement of inflammatory response subcutaneous abscess left colostomy site performe d 07/27/16. If you have any additional questions/comments and/or concerns please do not hesitate to reach out to the CDI/Coding Hotline ext. [phone] Query created by: Kim Freeman on 08/07/2016 8:40 AM RESPONSE TEXT: excisional debridement with sharp instruments using Sharp knives and scissors. excision of necrotic t issue and fascia adipose tissue Electronically signed by: Corby Jean MD 08/07/2016 11:38 AM
--- NOTE | 2016-08-23 15:30 | HHI.DS ---
Discharge Summary Admission Date Jul 20, 2016 at 06:02 Discharge Date: Aug 03, 2016 Admitting Diagnosis (1) Subcutaneous abscess Brief History 31 year old male s/p lap converted to open colostomy takedown, diverting ileostomy. PE at Discharge Alert and awake Resp: CTAB Cardio: RRR Colostomy site viable with stool in bag Small area mid incision with bloody drainage (small amt) VAC dressing intact Hospital Course This is a 31 year old male s/p lap converted to open colostomy takedown and diverting ileostomy. During the hospitalization this patient had an I&D of abscess adjacent to the prior colostomy site. A Would Vac was placed on this and changed MWF. Midline jing were removed. The patient will return to the care home medical unit with instructions to change Wound Vac MWF. The patient will follow up in the office as indicated on the DC instructions. Pt Condition on Discharge: Good Discharge Disposition: Dis to [facility] [employer] Enforcem Discharge Instructions DIET: Follow Instructions for: As Tolerated, No Restrictions Activities you can perform: Regular-No Restrictions Dariela Cartwright Aug 23, 2016 15:30
== END 2016-08-03 16:46 | DRG 330 ==
LOC: EEVIPCON 07-20 06:02 → HSDI 07-20 06:02 → HCPC 07-20 21:52 → N07B 07-27 14:24 → N07A 07-27 14:53
PROVIDERS: ADMIT Surgery Trauma Surgery; ATTEND Surgery Trauma Surgery
PROC: 0DBP0ZZ Excision of Rectum, Open Approach (ICD-10-PCS; 2016-07-20)
PROC: 0D1B0Z4 Bypass Ileum to Cutaneous, Open Approach (ICD-10-PCS; 2016-07-20)
PROC: 0DL Gastrointestinal System, Occlusion (ICD-10-PCS; 2016-07-20)
PROC: 0DJD8ZZ Inspection of Lower Intestinal Tract, Via Natural or Artificial Opening Endoscopic (ICD-10-PCS; 2016-07-20)
PROC: 0DBN0ZZ Excision of Sigmoid Colon, Open Approach (ICD-10-PCS; principal; 2016-07-20 08:01)
PROC: 0JB80ZZ Excision of Abdomen Subcutaneous Tissue and Fascia, Open Approach (ICD-10-PCS; 2016-07-27)
PROC: 0HD7XZZ Extraction of Abdomen Skin, External Approach (ICD-10-PCS; 2016-07-30)
PROC: 2W03X6Z Change Pressure Dressing on Abdominal Wall (ICD-10-PCS; 2016-07-30)
DX: Z43.3 Encounter for attention to colostomy (principal); L02.211 Cutaneous abscess of abdominal wall; G83.9 Paralytic syndrome, unspecified; L29.9 Pruritus, unspecified; M79.89 Other specified soft tissue disorders; T40.2X5A Adverse effect of other opioids, initial encounter; Z53.31 Laparoscopic surgical procedure converted to open procedure; W34.00XS Accidental discharge from unspecified firearms or gun, sequela
CPT/HCPCS: 71010; 71020; 74177; 76937; 80048; 80053; 81001; 85014; 85018; 85025; 85027; 86850; 86900; 86901; 87040; 88309; 93005; 94150; 94640; 94664; C1765; C9113; J0131; J0690; J0696; J1170; J1200; J1650; J2060; J2175; J2250; J2270; J2405; J2710; J3010; J3370; J3480; J7040; J7050; J7120; J7613; Q9963; Q9967

== ENCOUNTER → 2016-07-19 | Outpatient (CLI) | payer OTHER ==
[~2016-07-19] MED LIST: DIATRIZOATE MEGLUM/DIATRIZOATE SOD 120 ML BTL (for RAD DIAG) RECTAL ONE; DIVA500T PO; FLUO20CA4 PO; HYDR-3516 PO; MIRTA15 PO; OLAN10TA PO; RANI150T PO; TOBR.3%O RIGHT EYE; fentaNYL CITRATE 250 MCG/5 ML AMP ONE
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
== END ==
LOC: HRAD 08:20
PROVIDERS: ATTEND Family Medicine
DX: Z93.3 Colostomy status (principal)
CPT/HCPCS: 74270; Q9963; J3010

== ENCOUNTER → 2017-09-05 | Outpatient (CLI) | payer OTHER ==
[~2017-09-05] MED LIST changes: +DEPA500T PO; +DIATRIZOATE MEGLUM/DIATRIZOATE SOD 120 ML BTL (for RAD DIAG) RECTAL ONE; +DIVA500T PO; +FLUO20CA4 PO; +HALO100P IM; -HYDR-3516 PO; +MIRTA15 PO; +OLAN10TA PO; +PROZ20CA11 PO; +RANI150T PO; +REME15TA PO; +RISP2TAB2 PO; -TOBR.3%O RIGHT EYE
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
== END ==
LOC: HRAD 10:44
PROVIDERS: ATTEND Surgery Trauma Surgery
DX: Z93.2 Ileostomy status (principal)
CPT/HCPCS: 74270; Q9963